=== PATIENT | male | born 1960 | race Caucasian/White ===

== ENCOUNTER → 2020-09-28 | Emergency (ER) | payer OTHER ==
[~2020-09-28] VITALS: Ht 177.8 cm; Wt 77.1 kg
[~2020-09-28] MED LIST: CIPRO500 MG PO; PEPCID40 MG PO; SIMVASTATIN5 MG; SYNTHROID112 MCG
== END | disposition home or self-care (01) ==
LOC: ER 18:14
DX: K52.9 Noninfective gastroenteritis and colitis, unspecified (principal); R31.0 Gross hematuria

== ENCOUNTER 2020-10-01 11:45 | Emergency (ER) | payer OTHER ==
[~2020-10-01] VITALS: Ht 172.7 cm; Wt 85.3 kg
== END 2020-10-01 20:26 | disposition home or self-care (01) ==
LOC: ER 11:45
DX: M54.5 Low back pain (principal); R78.81 Bacteremia